=== PATIENT | male | born 1980 | race African-American/Black ===

== ENCOUNTER 2016-12-16 20:10 | Emergency (ER) | payer MEDICARE, OTHER ==
--- NOTE | ~2016-12-16 | CR72 ---
[facility]. [facility] A Service of [facility] & [facility] RADIOLOGY TEXT RESULTS PATIENT: JUNIOR CHING LOCATION: SED : [birth year] UNIT #: [id number] AGE: [address]: Be Vidal MD SEX: M ORDER DR: [id number] [place] [id number] E MR#: [id number] Acc #: [id number] NAME: JUNIOR CHING : 1980 SEX: M STUDY DATE/TIME: 12/16/2016 20:03 UNIT: SED ROOM: STUDY DESCRIPTION: CR Chest Single View Portable Attending Physician: Be Vidal M.D. Ordering Physician: Be Vidal M.D. Primary Care Physician: No Primary Care Physician MEDICAL IMAGING REPORT This report is preliminary unless electronic signature is present. EXAM Portable chest 12/16/2016 HISTORY A 36-year-old male with left-sided chest pain for 1 week. Comparison chest 02/09/2016 FINDINGS Frontal chest demonstrates clear lungs. No pleural effusion or pneumothorax. Heart size and mediastinum normal. Pulmonary vasculature normal. IMPRESSION No acute cardiopulmonary findings. Dictated by... Troy Wright M.D. THIS IS AN ELECTRONICALLY VERIFIED REPORT Troy Wright M.D. at 12/17/2016 4:47 PM Phong TD: 12/17/2016 01:36 JOB #: [id number] MEDICAL IMAGING REPORT Page 1 of 1
--- NOTE | ~2016-12-16 | EKG ---
PATIENT: JUNIOR CHING UNIT #: [id number] Ventricular Rate: 89 BPM Atrial Rate: 89 BPM P-R Interval: 158 ms QRS Duration: 102 ms Q-T Interval: 364 ms QTC Calculation(Bezet): 442 ms P [place]: 54 degrees Calculated R [place]: -11 degrees Calculated T [place]: 42 degrees Diagnosis Line: Normal sinus rhythm Diagnosis Line: Incomplete right bundle branch block Diagnosis Line: Inferior infarct , age undetermined Diagnosis Line: Abnormal ECG Diagnosis Line: When compared with ECG of 11-MAR-2011 01:03, Diagnosis Line: Incomplete right bundle branch block is now Diagnosis Line: Present Diagnosis Line: Inferior infarct is now Present Diagnosis Line: T wave inversion no longer evident in Inferior Diagnosis Line: leads Diagnosis Line: Nonspecific T wave abnormality, worse in Lateral Diagnosis Line: leads Diagnosis Line: Confirmed by LIGIA DOTSON MD ([id number]) on 12/18/2016 Diagnosis Line: 9:40:26 AM INTERPRETING MD: NILA NIELSEN
[~2016-12-16 20:10] MED LIST: ALBUTEROL17 GM INH; BENZONATATE PO; CIPRO PO; CLARITIN10 M2 PO; CLARITIN10 M3 PO; NORVASC PO; PREDNISONE PO; PREDNISONE10 MG/DOSE PO; PROPRANOLOL PO; SEROQUEL300 MG; ZYPREXA PO; [UNRECOGNIZED DRUG - OTHER]
[2016-12-16 20:20] LABS: BASOPHIL% 0.6 % (0-2.5); DIFF IND NO; EOSINOPHIL# 0.3 X10e3 (0-0.7); EOSINOPHIL% 3.6 % (0.0-7.0); HEMATOCRIT 46.2 % (38.0-50.0); HEMOGLOBIN 16.2 gm/dL (13.0-16.0); LYMPHOCYTE# 1.4 X10e3 (1.0-3.5); LYMPHOCYTE% 19.6 % (17.0-45.0); MEAN CELL VOLUME 90.1 FL (83-96); MEAN CORPUSCULAR HEMOGLOBIN 31.6 PG (28-34); MEAN CORPUSCULAR HGB CONC 35.1 g/dL (30-36); MEAN PLATELET VOLUME 7.9 FL (6.5-11.5); MONOCYTE# 0.5 X10e3 (0-1.0); MONOCYTE% 7.3 % (3.0-12.0); NEUTROPHIL% 68.9 % (40-75); PLATELET COUNT 209 X10e3 (140-420); RED BLOOD COUNT 5.12 X10e (3.90-5.60); RED CELL DISTRIBUTION WIDTH 14.4 % (11.0-15.5); WHITE BLOOD COUNT 7.2 X10e3 (4.0-10.5)
[2016-12-16 20:29] LABS: INR 1.5; PROTHROMBIN TIME (PATIENT) 16.7 SECONDS (9.5-12.4)
[2016-12-16 20:35] LABS: ALBUMIN SERUM 4.1 g/dL (3.5-5.0); BILIRUBIN, DIRECT 0.1 mg/dL (0.0-0.2); BILIRUBIN,INDIRECT 0.5 mg/dL (0.0-0.9); BILIRUBIN,TOTAL 0.6 mg/dL (0.2-2.0); CALCIUM SERUM 8.9 mg/dL (8.4-10.2); GLOM FILT RATE Estimated 112.5 mL/min (>60); POTASSIUM 3.2 mmol/L (3.5-5.1); PROTEIN TOTAL SERUM 8.1 g/dL (6.0-8.3)
[2016-12-16 20:36] LABS: PARTIAL THROMBOPLASTIN TIME 29.8 SECONDS (25.6-38.1)
[2016-12-16 20:41] LABS: POC - CKMB <1.0 ng/mL (0.0-7.9); POC - TROPONIN <0.05 ng/mL (<=0.05)
[2016-12-16 20:51] LABS: POC - CKMB <1.0 ng/mL (0.0-7.9); POC - TROPONIN <0.05 ng/mL (<=0.05)
== END 2016-12-16 21:29 | disposition home or self-care (01) ==
LOC: SED 20:10
PROVIDERS: Emergency Medicine
DX: K21.9 Gastro-esophageal reflux disease without esophagitis (principal); I10 Essential (primary) hypertension; F17.200 Nicotine dependence, unspecified, uncomplicated
CPT/HCPCS: 36415; 71010; 80048; 80076; 82553; 84484; 85025; 85610; 85730; 93005; 96361; 96374; 99284

== ENCOUNTER 2017-02-05 20:18 | Emergency (ER) | payer MEDICARE, OTHER ==
[2017-02-05 20:49] LABS: URINE SOURCE CLEAN CATCH
[2017-02-05 20:52] LABS: URINE APPEARANCE CLEAR; URINE BILIRUBIN NEG (NEG); URINE BLOOD NEG (NEG); URINE COLOR YELLOW; URINE GLUCOSE NEG (NORM); URINE KETONE NEG (NEG); URINE LEUKOCYTE ESTERASE NEG (NEG); URINE NITRATE NEG (NEG); URINE PROTEIN NEG (NEG); URINE SPECIFIC GRAVITY 1.025 (1.003-1.035); URINE UROBILINOGEN 0.2 MG/DL (NORM)
[2017-02-05 20:53] LABS: MICRO INDICATED? NO
[2017-02-08 00:07] LABS: CHLAMYDIA TRACH Not Detected (Not Detected); N GONOR Not Detected (Not Detected)
== END 2017-02-05 21:31 | disposition home or self-care (01) ==
LOC: SED 20:18
PROVIDERS: Physician Assistant
DX: N34.1 Nonspecific urethritis (principal); F17.210 Nicotine dependence, cigarettes, uncomplicated
CPT/HCPCS: 81003; 87491; 87591; 96372; 99283; J0696

== ENCOUNTER 2017-03-03 14:38 | Emergency (ER) | payer MEDICARE, OTHER ==
[2017-03-03 15:58] LABS: URINE SOURCE CLEAN CATCH
[2017-03-03 16:06] LABS: URINE APPEARANCE CLEAR; URINE BILIRUBIN NEG (NEG); URINE BLOOD TRACE-LYSED (NEG); URINE COLOR YELLOW; URINE GLUCOSE NEG (NORM); URINE KETONE NEG (NEG); URINE LEUKOCYTE ESTERASE NEG (NEG); URINE NITRATE NEG (NEG); URINE PROTEIN NEG (NEG); URINE UROBILINOGEN 0.2 MG/DL (NORM)
[2017-03-03 16:07] LABS: MICRO INDICATED? YES
[2017-03-03 16:31] LABS: CULTURE INDICATED? NO; URINE BACTERIA NEG (NEG); URINE RBC 0-2 /[HPF] (0-2); URINE WBC 0-2 /[HPF] (0-5)
[2017-03-03 16:32] LABS: URINE TRICHOMONAS NEGATIVE
[2017-03-05 16:39] LABS: CHLAMYDIA TRACH Not Detected (Not Detected); N GONOR Not Detected (Not Detected)
== END 2017-03-03 16:58 | disposition home or self-care (01) ==
LOC: SED 14:38
PROVIDERS: Nurse Practitioner
DX: R30.0 Dysuria (principal); I10 Essential (primary) hypertension; F20.9 Schizophrenia, unspecified; F17.210 Nicotine dependence, cigarettes, uncomplicated; Z79.899 Other long term (current) drug therapy
CPT/HCPCS: 81003; 87491; 87591; 99283

== ENCOUNTER 2017-03-06 21:48 | Emergency (ER) | payer MEDICARE, OTHER ==
[~2017-03-06] VITALS: Ht 172.7 cm; Wt 117.9 kg
--- NOTE | ~2017-03-06 | EKG ---
PATIENT: JUNIOR CHING UNIT #: [id number] Ventricular Rate: 74 BPM Atrial Rate: 74 BPM P-R Interval: 172 ms QRS Duration: 102 ms Q-T Interval: 386 ms QTC Calculation(Bezet): 428 ms P [place]: 33 degrees Calculated R [place]: -10 degrees Calculated T [place]: 10 degrees Diagnosis Line: Normal sinus rhythm Diagnosis Line: Incomplete right bundle branch block Diagnosis Line: Inferior infarct (cited on or before 16-DEC-2016) Diagnosis Line: Abnormal ECG Diagnosis Line: When compared with ECG of 16-DEC-2016 19:38, Diagnosis Line: No significant change was found Diagnosis Line: Confirmed by GITA MELENDEZ MD ([id number]) on Diagnosis Line: 03/07/2017 2:49:25 PM INTERPRETING MD: NORA NIELSEN
--- NOTE | ~2017-03-06 | CR72 ---
[facility] A Service of [facility] & [facility] RADIOLOGY TEXT RESULTS PATIENT: JUNIOR CHING LOCATION: SED : [birth year] UNIT #: [id number] AGE: [address]: Sanjay Cook MD SEX: M ORDER DR: [id number] [place] [id number] E MR#: [id number] Acc #: [id number] NAME: JUNIOR CHING : 1980 SEX: M STUDY DATE/TIME: 03/06/2017 21:54 UNIT: SED ROOM: STUDY DESCRIPTION: CR Chest Single View Portable Attending Physician: Sanjay Cook M.D. Ordering Physician: Sanjay Cook M.D. Primary Care Physician: Primary Care Physician No MEDICAL IMAGING REPORT This report is preliminary unless electronic signature is present. EXAM Portable chest, 03/06/2017 HISTORY Chest pain and heart palpitations tonight. Benign essential hypertension. FINDINGS A single AP portable view of the chest shows both lungs to be clear. The heart is normal in size. The mediastinal contour is normal. No significant bone abnormalities are seen. IMPRESSION Normal portable chest. Dictated by... Emil Keys M.D. THIS IS AN ELECTRONICALLY VERIFIED REPORT Emil Keys M.D. at 03/07/2017 10:26 AM JACKIE/zeke TD: 03/06/2017 23:08 JOB #: [id number] MEDICAL IMAGING REPORT Page 1 of 1
[2017-03-06 22:09] LABS: BASOPHIL# 0.1 X10e3 (0-0.3); BASOPHIL% 0.9 % (0-2.5); EOSINOPHIL# 0.4 X10e3 (0-0.7); EOSINOPHIL% 3.6 % (0.0-7.0); HEMATOCRIT 44.9 % (38.0-50.0); HEMOGLOBIN 15.9 gm/dL (13.0-16.0); LYMPHOCYTE# 2.7 X10e3 (1.0-3.5); LYMPHOCYTE% 22.8 % (17.0-45.0); MEAN CELL VOLUME 89.8 FL (83-96); MEAN CORPUSCULAR HEMOGLOBIN 31.8 PG (28-34); MEAN CORPUSCULAR HGB CONC 35.4 g/dL (30-36); MEAN PLATELET VOLUME 7.9 FL (6.5-11.5); MONOCYTE# 0.7 X10e3 (0-1.0); MONOCYTE% 5.6 % (3.0-12.0); NEUTROPHIL# 8.1 X10e3 (1.5-7.1); NEUTROPHIL% 67.1 % (40-75); PLATELET COUNT 266 X10e3 (140-420); RED CELL DISTRIBUTION WIDTH 14.8 % (11.0-15.5)
[2017-03-06 22:10] LABS: DIFF IND NO
[2017-03-06 22:29] LABS: POC - CKMB <1.0 ng/mL (0.0-7.9); POC - TROPONIN <0.05 ng/mL (<=0.05)
[2017-03-06 22:34] LABS: INR 1.2; PROTHROMBIN TIME (PATIENT) 13.2 SECONDS (9.5-12.4)
[2017-03-06 22:35] LABS: ALBUMIN SERUM 4.2 g/dL (3.5-5.0); ALKALINE PHOSPHATASE 67 U/L (32-92); ALT (SGPT) 16 U/L (10-40); AST (SGOT) 18 U/L (10-42); BILIRUBIN,TOTAL 0.3 mg/dL (0.2-2.0); BLOOD UREA NITROGEN 12 mg/dL (9-23); BUN/CREATININE RATIO 13.33; CALCIUM SERUM 9.1 mg/dL (8.4-10.2); CARBON DIOXIDE 26 mmol/L (22-31); CHLORIDE 103 mmol/L (100-111); CREATININE SERUM 0.9 mg/dL (0.6-1.4); GLOM FILT RATE Estimated 127.8 mL/min (>60); GLUCOSE FASTING 95 mg/dL (70-110); POTASSIUM 3.3 mmol/L (3.5-5.1); PROTEIN TOTAL SERUM 7.8 g/dL (6.0-8.3); SODIUM 136 mmol/L (135-145)
[2017-03-06 22:40] LABS: BILIRUBIN, DIRECT <0.1 mg/dL (0.0-0.2); BILIRUBIN,INDIRECT 0.2 mg/dL (0.0-0.9)
[2017-03-06 22:41] LABS: PARTIAL THROMBOPLASTIN TIME 28.8 SECONDS (25.6-38.1)
[2017-03-06 23:58] LABS: POC - CKMB <1.0 ng/mL (0.0-7.9); POC - TROPONIN <0.05 ng/mL (<=0.05)
== END 2017-03-07 00:06 | disposition home or self-care (01) ==
LOC: SED 21:48
PROVIDERS: Emergency Medicine
DX: R00.2 Palpitations (principal); F17.200 Nicotine dependence, unspecified, uncomplicated
CPT/HCPCS: 36415; 71010; 80048; 80076; 82553; 84484; 85025; 85610; 85730; 93005; 99285

== ENCOUNTER 2017-04-02 15:35 | Emergency (ER) | payer MEDICARE, OTHER | END 2017-04-02 16:42 | disposition home or self-care (01) | LOC: SED 15:35 | DX: N34.1 Nonspecific urethritis (principal); R21 Rash and other nonspecific skin eruption; I10 Essential (primary) hypertension; F17.210 Nicotine dependence, cigarettes, uncomplicated; Z90.49 Acquired absence of other specified parts of digestive tract; Z79.899 Other long term (current) drug therapy | CPT/HCPCS: 96372; 99283; J0696 ==